=== PATIENT | male | born 1955 | race Caucasian/White ===

== ENCOUNTER → 2021-03-23 03:47 | Outpatient (CLI) | payer MEDICARE, SELFPAY ==
[2021-03-23 19:45] LABS: SARS-CoV-2 RNA PCR Negative
== END ==
PROVIDERS: PCP Internal Medicine; Visit Provider Internal Medicine Gastroenterology
DX: Z01.812 Encounter for preprocedural laboratory examination (principal); Z20.822 Contact with and (suspected) exposure to COVID-19
CPT/HCPCS: C9803; U0003; U0005

== ENCOUNTER 2021-03-27 01:35 | Day surgery (SDC) | payer MEDICARE, SELFPAY ==
[2021-03-13 14:25] VITALS: BMI 33.5
[2021-03-27 08:33] VITALS: BP 155/80; PULSE 72; RESP 18; TEMP 36.7; O2SAT 100
--- NOTE | 2021-03-27 08:35 | WPDGICN ---
Assessment and Plan Assessment and plan (1) Encounter for screening colonoscopy: Code(s): Z12.11 - Encounter for screening for malignant neoplasm of colon Status: Acute Assessment and Plan: Patient appears to be at average risk for colon polyps. Screening colonoscopy will be performed. Further recommendations will be given after endoscopy. GI Consult Note Consult date/time: 03/27/21 08:35 HPI: Jose Martin Silva is a 65 year old male Presents for screening colonoscopy. Patient states that his current weight appetite bowel movements are normal. Patient denies any blood in his stools. Patient denies abdominal pain. He has been in general good health. Family history noncontributary. Review of Systems Review of Systems: All systems reviewed & are unremarkable except as noted in HPI and below PMFSH Social History Social History Smoking packs per day: 1 Smoking cigarettes per day: 20.0 Years smoked: 30 Smoking pack-years: 30.00 Smoking status: Former smoker Tobacco type: cigarettes Alcohol intake: current Alcohol use details: RARELY Living arrangements: with family Spiritual care concerns: No Meds Home Medications and Allergies Home Medications Medication Instructions Recorded Confirmed Type sodium,potassium,mag sulfates 17.5 See Rx Instructions PO .COMPLEX 03/08/21 Rx gram-3.13 gram-1.6 gram oral soln #354 ml amlodipine-benazepril 1 cap PO DAILY 03/13/21 03/13/21 History aspirin 81 mg PO DAILY 03/13/21 03/13/21 History fluticasone propion-salmeterol 1 inh INHALATION BID 03/13/21 03/13/21 History Allergies Allergy/AdvReac Type Severity Reaction Status Date / Time No Known Allergies Allergy Verified 03/27/21 08:32 Vital Signs Vital Signs - 24 hr 03/27/21 08:33 Temperature 98.0 F Pulse Rate 72 Respiratory Rate 18 Blood Pressure 155/80 H Pulse Oximetry 100 Exam Narrative: Exam Narrative: Physical exam reveals patient be alert. Vital signs stable. HEENT exam is unremarkable. Patient is anicteric. Lungs are clear to auscultation and percussion. Heart is without murmur or extra sounds. Abdominal exam bowel sounds are present soft nontender with no organomegaly. Digital external rectal exam is normal.
[2021-03-27] MEDS: LACTATED RINGERS 1,000 ML 150 ML IV CONT (08:42)
--- NOTE | 2021-03-27 08:48 | P.PNAN_ITS ---
Anes - Initial Pre Proc Eval Procedure: Operation Date: 03/27/21 09:00 Proposed Procedures p Screening Colonoscopy - Castro Hernandez MD Date/Time: 03/27/21 08:48 Surgeon: Castro Hernandez MD Pre Op Diagnosis: neoplasm screening Patient Data Age: 65 Gender: M Height: 5 ft 8 in Weight: 94 kg Last Vital Signs Temp 98.0 F 03/27/21 08:33 Pulse 72 03/27/21 08:33 Resp 18 03/27/21 08:33 BP 155/80 H 03/27/21 08:33 Pulse Ox 100 03/27/21 08:33 Allergies Allergy/AdvReac Type Severity Reaction Status Date / Time No Known Allergies Allergy Verified 03/27/21 08:32 Home Medications Medication Instructions Recorded Confirmed Type sodium,potassium,mag sulfates 17.5 See Rx Instructions PO .COMPLEX 03/08/21 Rx gram-3.13 gram-1.6 gram oral soln #354 ml amlodipine-benazepril 1 cap PO DAILY 03/13/21 03/13/21 History aspirin 81 mg PO DAILY 03/13/21 03/13/21 History fluticasone propion-salmeterol 1 inh INHALATION BID 03/13/21 03/13/21 History Patient hx anesthesia problems: none Family hx anesthesia problems: none [facility] Past Medical History Medical History (Updated 03/27/21 @ 08:47 by Oziel Mortensen MD) Asthma Hypertension Social History Social History Smoking packs per day: 1 Smoking cigarettes per day: 20.0 Years smoked: 30 Smoking pack-years: 30.00 Smoking status: Former smoker Tobacco type: cigarettes Alcohol intake: current Alcohol use details: RARELY Living arrangements: with family Spiritual care concerns: No Anes - Eval Final PreProcedure Day of Procedure 03/27/21 08:48 Patient weight: obese Heart: regular rate and rhythm Lungs: clear to auscultation Airway: Mallampati scale class II Neurological: alert and oriented Last oral intake: >/= 8 hours ASA classification: III Emergent: no Anesthetic plan: proceed Anesthesia type and monitoring: general and standard monitoring Informed Consent: The patient's anesthetic plan and its attendant risks and benefits were discussed with the patient/family/POA. Questions were solicited and answers provided to the satisfaction of the patient/family/POA.
[2021-03-27 09:32] VITALS: BP 99/70; PULSE 73; RESP 28; O2SAT 99
[2021-03-27 09:42] VITALS: BP 120/78; PULSE 72; RESP 16; O2SAT 98
[2021-03-27 09:52] VITALS: BP 120/75; RESP 12; O2SAT 100
== END 2021-03-27 09:54 | disposition home or self-care (01) ==
PROVIDERS: PCP Internal Medicine; Visit Provider Internal Medicine Gastroenterology
PROC: 0DJD8ZZ Inspection of Lower Intestinal Tract, Via Natural or Artificial Opening Endoscopic (ICD-10-PCS; CPT 45378; principal; 2021-03-27 09:00)
DX: Z12.11 Encounter for screening for malignant neoplasm of colon (principal); D12.5 Benign neoplasm of sigmoid colon; K64.8 Other hemorrhoids; K57.30 Diverticulosis of large intestine without perforation or abscess without bleeding; Z87.891 Personal history of nicotine dependence; I10 Essential (primary) hypertension; J45.909 Unspecified asthma, uncomplicated; E66.9 Obesity, unspecified; Z68.31 Body mass index [BMI] 31.0-31.9, adult
CPT/HCPCS: 45385; 88305; J2001; J2704; J7120

== ENCOUNTER 2024-05-09 08:00 | Outpatient (RCR) | payer MEDICARE, SELFPAY ==
--- NOTE | 2024-04-27 16:20 | PTOPEVAL1 ---
Assessment and note entered by Emely Irvin, PT Evaluation Information Assessment Status Evaluation Diagnosis pain in right knee ICD-10 Condition Codes (PT) M25.561,Weakness R53.1 Onset ~ 1 year ago Subjective Information Pt states about a year ago was walking on a steep incline and was going for 2500 ft elevation, met this goal and then knee started hurting in the trough . Currently pain is gone. Pain has been off and on. Has not returned to full recreational fitness due to knee pain. Usually walks about 4 miles at intervals for cardiovascular fitness. About a month ao the knee started hurting all the time but doesn't recall if there was something that happened. Began hurting regardless of the position. X-ray stated maybe a little arthritis, a little swelling . Has since started taking Tumeric supplement about 3 weeks ago and the pain is gone. Increased pain with sitting wiht right leg turned. Reported Pain Level Pain Score 0: Self Report Assessment PT Clinical Summary Pt presents with complaints of right knee medial joint pain that has recently been resovled with over the counter nutritional supplement, however he has not returned to his high level recreational fitness activities. Pt demo's decreased flexibility multiple muscle groups, abnormal ankle /foot alignment, and decreased strength compared to his norms. Pt will benefit from phyiscal therapy to address deficits and educate patient on appropriate alignment during exercises for maximal independence with activity. Plan of Care Interventions Electrical Stimulation,Gait Training,Hot Pack/Cold Pack,Manual Therapy,Neuro Re-education,Patient/ Caregiver Educati,Therapeutic Activities, Therapeutic Exercise,Self-Care/Home Management, Ultrasound PT Services Indicated Yes Treatment Frequency and 1-2x weekly x 8 visits Duration These treatments will address the objective and functional deficits as defined above. The patient will be advanced safely and appropriately in order for the patient to progress towards his/her prior level of function. Additional exercises will be introduced and as well as a comprehensive home exercise program upon discharge, if needed, ?to ensure carryover of functional gains achieved in the clinic. This treatment plan has been reviewed and agreement upon by the patient.
--- NOTE | 2024-04-27 16:20 | OPREHPOC ---
Outpatient Therapy Plan of Care This is a Multidisciplinary Plan of Care that may contain components documented by all disciplines (PT, OT, and ST.) PT Problem 1 PT Problem #1 Knowledge Deficit PT Goal 1 Goal Pt will be independent in HEP Pt will verbalize understanding of diagnosis and prognosis Target Visit 4 PT Problem 2 PT Problem #2 Impaired Strength PT Goal 1 Goal Pt will demo strength of 4+/5 in all tested planes Target Visit 8 PT Goal 2 Goal Pt will demo strength of 5/5 in all tested planes PT Problem 3 PT Problem #3 Impaired Flexibility PT Goal 1 Goal Pt will demo increased flexibility to improve forces on knee to decrease discomfort. Target Visit 8 PT Problem 4 PT Problem #4 Pain PT Goal 1 Goal Pt will resume his high level activities without increased pain to meet patient goals Target Visit 8
--- NOTE | 2024-05-03 10:05 | PCPTNOTE ---
Patient did not show up for scheduled appointment this date.
--- NOTE | 2024-05-11 10:06 | PCPTNOTE ---
No call no show, reason unknown. AKSwapna
--- NOTE | 2024-06-14 13:42 | PTOPDC ---
Assessment and note entered by Emely Irvin, PT Evaluation Information Assessment Status Discharge - Pt Not Present Diagnosis pain in right knee ICD-10 Condition Codes (PT) M25.561,Weakness R53.1 Onset ~ 1 year ago Subjective Information Pt states about a year ago was walking on a steep incline and was going for 2500 ft elevation, met this goal and then knee started hurting in the trough . Currently pain is gone. Pain has been off and on. Has not returned to full recreational fitness due to knee pain. Usually walks about 4 miles at intervals for cardiovascular fitness. About a month ao the knee started hurting all the time but doesn't recall if there was something that happened. Began hurting regardless of the position. X-ray stated maybe a little arthritis, a little swelling . Has since started taking Tumeric supplement about 3 weeks ago and the pain is gone. Increased pain with sitting with right leg turned. Assessment PT Clinical Summary Pt attended 3 visits including his evaluation and NCNS x 2 additional visits. His last visit was . We have since contacted him and he stated to clerical his knee was better and was not interested in continuing therapy. Thus we are discharging patient at this time. Plan of Care PT Services Indicated No
== END 2024-06-14 14:38 | disposition home or self-care (01) ==
LOC: ANHHIPT 08:00
PROVIDERS: PCP Physician Assistant Medical; Visit Provider Physician Assistant Medical
DX: M25.561 Pain in right knee (principal)
CPT/HCPCS: 97110; 97161

== ENCOUNTER → 2024-05-16 11:27 | Outpatient (REF) | payer MEDICARE, SELFPAY | LOC: ANHLAB 11:27 | PROVIDERS: PCP Physician Assistant Medical; Visit Provider Plastic Surgery | DX: L98.9 Disorder of the skin and subcutaneous tissue, unspecified (principal) | CPT/HCPCS: 88305 ==

== ENCOUNTER 2024-05-27 10:14 | Outpatient (CLI) | payer MEDICARE, SELFPAY ==
--- NOTE | 2024-05-27 14:00 | WPDPFTINT ---
PFT Procedure Performed PFT Procedure Performed Spirometry with Pre/Post Bronchodilator Plethysmography (Lung Vol) Diffusing Cap (DLCO) Flow Vol Loop PFT Interpretation This is a pulmonary function test with pre and post-bronchodilator spirometry, plethysmography and diffusing capacity. The test was performed and results interpreted in accordance with the 2019 and 2005 ATS/ERS Task Force guidelines respectively using the Global Lung Function Initiative-2012 reference equations. Patient demonstrated good effort and cooperation. Reproducibility criteria were met. The quality of the pre bronchodilator spirometry maneuver was Grade A and post bronchodilator spirometry maneuver was Grade A. Findings: Spirometry: The contour the inspiratory and expiratory flow tracing are normal. The pre bronchodilator FVC is 4.24 L, 109% predicted. The pre bronchodilator FEV1 is 2.98 L, 100% predicted. The pre bronchodilator FEV1: FVC ratio 70%. The post bronchodilator FVC is 3.86 L, representing a 9% decrease. The post bronchodilator FEV1 is 2.98 L, representing no change. The post bronchodilator FEV1: FVC ratio is 77%. Plethysmography: The total lung capacity is 6.45 L, 101% predicted. The functional residual capacity is 3.33 L, 100% predicted. The residual volume is 2.21 L, 99% predicted. Diffusing capacity: The diffusing capacity unadjusted for hemoglobin and carboxyhemoglobin is 32.4, 128% predicted. The diffusing capacity adjusted for alveolar volume is 5.13, 123% predicted. Impression: The spirometry is normal without evidence of an obstructive abnormality. There is no significant improvement after inhaling a single dose of albuterol. The lung volumes are normal. The diffusing capacity is normal. There are no prior studies for comparison.
== END 2024-05-27 10:15 | disposition home or self-care (01) ==
LOC: ANHPFT 10:15
PROVIDERS: PCP Physician Assistant Medical; Visit Provider Nurse Practitioner Family
DX: J45.909 Unspecified asthma, uncomplicated (principal)
CPT/HCPCS: 94060; 94726; 94729

== ENCOUNTER 2024-06-09 08:09 | Outpatient (CLI) | payer MEDICARE, SELFPAY ==
[2024-06-09] MEDS: METHACHOLINE CHLORIDE 18 ML VIAL.NEB INHALATION (10:21)
[2024-06-09] MEDS: ALBUTEROL SULFATE NEB 2.5 MG/3 ML INH (10:25)
--- NOTE | 2024-06-09 11:02 | P.METCHAL_ITS ---
Methacholine Procedure Perform Procedure Performed Methacholine Challenge Methacholine Challenge Methacholine Challenge: DOS: 06/09/2024 REQUESTING: Ignacio Owens APRN REASON FOR TESTING: asthma METHACHOLINE CHALLENGE This test was performed and interpreted in accord with the 2021 ERS/ATS technical standards. Testing was performed with increasing doses of nebulized methacholine following a quadruple in dosage protocol.? Testing was performed with increasing doses of nebulized methacholine following a quadruple in dosage protocol.? The methacholine dose was delivered via the [id number] Micro Mist nebulizer using a 1 minute tidal breathing protocol.? The best post -methac holine FEV1 values were used to determine the change from the post dilute FEV1.? The delivered dose of methacholine was used to calculate the provocative dose causing a 20% fall in the FEV1 ( PD 20). Baseline pulmonary function study 05/27/2024 showed normal FEV1, 2.98 L, 100%, and a normal FVC, 4.24 L, 109%, no response to bronchodilator Findings ? Baseline FEV1?2.79 L, 94% Post diluent FEV1 2.68 L, 90% -4% Post-1.81 mcg? methacholine FEV1?2.50 L, 84%? -6% Post-7.26? mcg methacholine? FEV1 2.68 L, 90% no change Post-29.03 mcg methacholine FEV1?2.18 L, 73%, -19% Post-116.1 mcg methacholine FEV1 FEV1 1.76 L, 59%, -34% Post albuterol nebulization FEV1 2.61 L, 88% The test was stopped after the fourth dose of methacholine. A decrease of 20% in the FEV1 is a positive result, and the testing is terminated. Flows returned to normal after bronchodilator was administered. IMPRESSION: This is a positive methacholine challenge with the PD20 116.1 mcg on the fourth dose. This is consistent with borderline airway hyperresponsiveness. The best use for a methacholine challenge is to rule out asthma. Clinical correlation is advised. Sruthi Ibrahim MD
== END 2024-06-09 08:10 | disposition home or self-care (01) ==
LOC: ANHPFT 08:10
PROVIDERS: PCP Physician Assistant Medical; Visit Provider Nurse Practitioner Family
DX: J45.20 Mild intermittent asthma, uncomplicated (principal); R94.2 Abnormal results of pulmonary function studies
CPT/HCPCS: 94070; J7674

== ENCOUNTER → 2024-07-05 12:09 | Outpatient (REF) | payer MEDICARE, SELFPAY | LOC: ANHLAB 12:09 | PROVIDERS: PCP Physician Assistant Medical; Visit Provider Plastic Surgery | DX: L72.0 Epidermal cyst (principal) | CPT/HCPCS: 88305 ==